=== PATIENT | female | born 1975 | race Caucasian/White ===

== ENCOUNTER 2019-02-06 21:28 | Emergency (ER) | payer MEDICAID ==
[~2019-02-06] VITALS: Ht 154.9 cm; Wt 68.2 kg
[2019-02-06] MEDS ORDERED: ACET-66 PO (22:06)
[2019-02-06] MEDS ORDERED: AMLO5TAB9 PO (22:06)
[2019-02-07] MEDS ORDERED: KETOROLAC TROMETHAMINE 30 MG/ML VIAL IM ONE (02:45)
[2019-02-07] MEDS ORDERED: CYCLOBENZAPRINE HCL 10 MG TABLET PO ONE (02:45)
[2019-02-07 02:53] VITALS: BP 130/80
== END 2019-02-07 02:58 | disposition home or self-care (01) ==
LOC: EMS 21:33
DX: M54.41 Lumbago with sciatica, right side (principal); Z79.899 Other long term (current) drug therapy
CPT/HCPCS: 96372; 99283; J1885